=== PATIENT | male | born 1985 | race Two or more races ===

== ENCOUNTER 2018-09-22 23:42 | Emergency (ER) | payer SELFPAY ==
[~2018-09-22] VITALS: Ht 170.2 cm; Wt 81.6 kg
[2018-09-22 23:25] VITALS: BP 123/76
--- NOTE | 2018-09-22 23:42 | NUR ---
Patient walked out stating hes got to go, did not want to be seen by MD,alert, oriented with steady gait. Ambulated to exit and left.
--- NOTE | 2018-09-23 02:07 | Emergency Room Report ---
History of Present Illness General Chief Complaint: Alcohol Intoxication Source: Patient Present Illness Allergies: Coded Allergies: No Known Allergies (Unverified , 09/22/18) Nursing Documentation-[facility] Past Medical History: No Stated History Physical Exam Vital Signs Date Time Temp Pulse Resp B/P (MAP) Pulse Ox O2 Delivery O2 Flow Rate FiO2 09/22/18 23:25 97.9 110 16 123/76 (92) 98 Room Air Medical Decision Making Diagnostic Impression: Primary Impression: LWBS Additional Impression: Acute alcoholic intoxication ER Course Patient brought in by EMS for alcohol intoxication. Upon arrival patient walked out of ED stating he did not want to be evaluated Last Vital Signs Date Time Temp Pulse Resp B/P (MAP) Pulse Ox O2 Delivery O2 Flow Rate FiO2 09/22/18 23:25 97.9 110 16 123/76 (92) 98 Room Air Status: improved Disposition: LEFT W/OUT BEING SEEN Condition: Stable Referrals: NOT CHOSEN IPA/,REFERRING (PCP) Denton Mesa MD Sep 23, 2018 02:07
== END 2018-09-22 23:45 | disposition left against medical advice (07) ==
LOC: EDBD 23:42 → EMR 23:43
DX: F10.129 Alcohol abuse with intoxication, unspecified (principal); Z53.21 Procedure and treatment not carried out due to patient leaving prior to being seen by health care provider